=== PATIENT | female | born 1965 | race American Indian/Alaskan Native ===

== ENCOUNTER 2016-09-02 23:52 | Emergency (ER) | payer BC ==
[2016-09-03] MEDS ORDERED: TYLENOL PO ONE (01:13)
[2016-09-03] MEDS ORDERED: NORCO 5/325 ONE (01:16)
[2016-09-03] MEDS ORDERED: NORCO 5/325 PO ONE (01:20)
[2016-09-03] MEDS ORDERED: SUBLIMAZE IV ONE (01:44)
[2016-09-03] MEDS ORDERED: ZOFRAN IV ONE (01:44)
--- NOTE | 2016-09-03 01:53 | XRay Report ---
FINAL REPORT PROCEDURE: XR SHOULDER 2 RT TECHNIQUE: Right shoulder radiographs including AP views in internal and external rotation and abduction. CPT 48116 HISTORY: shoulder pain, dislocation COMPARISON: No prior studies are available for comparison. FINDINGS: Fracture (s) and/or Dislocation(s): There is an anterior dislocation of the right glenohumeral joint. There is a comminuted fracture of the glenoid process.. Joint space(s): There is no significant arthrosis.. Soft tissues: Normal . Bone mineralization: Normal . Foreign bodies: None . IMPRESSION: There is an anterior dislocation of the right glenohumeral joint. There is a comminuted fracture of the glenoid process..
[2016-09-03] MEDS ORDERED: NACL 0.9% 1000 ML 1,000 ML ONE (02:05)
--- NOTE | 2016-09-03 02:06 | Emergency Department Report ---
Upper Extremity - HPI Chief Complaint: Extremity Injury, Upper Stated Complaint: R ARM PAIN/POSS DISLOCATION Time Seen by Provider: 09/03/16 02:00 Upper Extremity: Right Shoulder Occurred When: Today Mechanism: Other (tripped on the curb and impacted a glass wall with significant force.) Severity: severe Symptoms: Yes Pain with Movement, Yes Deformity, Yes Limited Range of Movement, No Numbness, No Weakness, No Swelling, No Bruising/Ecchymosis, No Laceration or Abrasion Other History: Last meal at 6 PM ED Review of Systems ROS: Stated complaint: R ARM PAIN/POSS DISLOCATION Other details as noted in HPI Comment: All other systems reviewed and negative Constitutional: denies: chills, fever Eyes: denies: eye pain, eye discharge, vision change ENT: denies: ear pain, throat pain Respiratory: denies: cough, shortness of breath, wheezing Cardiovascular: denies: chest pain, palpitations Endocrine: no symptoms reported Gastrointestinal: denies: abdominal pain, nausea, diarrhea Genitourinary: denies: urgency, dysuria, discharge Musculoskeletal: denies: back pain, joint swelling, arthralgia Skin: denies: rash, lesions Neurological: denies: headache, weakness, paresthesias Psychiatric: denies: anxiety, depression Hematological/Lymphatic: denies: easy bleeding, easy bruising ED Past Medical Hx - Past Medical History Previous Medical History?: No - Surgical History Past Surgical History?: No - Social History Smoking Status: Never Smoker Substance Use Type: None - Medications Home Medications: Home Medications Medication Instructions Recorded Confirmed Last Taken Type HYDROcodone/APAP 5-325 [[place] 1 each PO Q6HR PRN #20 tablet 09/03/16 Unknown Rx 5/325] Ibuprofen [Motrin 400 MG tab] 400 mg PO Q8H PRN #20 tablet 09/03/16 Unknown Rx Upper Extremity Exam - Exam General: Vital signs noted. No distress. Alert and acting appropriately. Head and Torso: No HEENT Abnormality, No Neck Tenderness, No Chest/Lungs Abnormality, No Abdominal Tenderness, No Back Tenderness Shoulder Exam: Yes Shoulder Tenderness, Yes Shoulder Deformity, No Clavicle Tenderness, No Normal Range of Motion in Shoulder, No AC Joint Tenderness Arm Exam: No Arm/Humerus Tenderness, No Arm Deformity Elbow: No Elbow Tenderness, No Normal Range of Motion in Elbow, No Elbow Deformity Forearm: No Forearm Tenderness, No Forearm Deformity, No Pain with Pronation, No Pain with Supination Wrist: No Wrist Tenderness, No Normal ROM in Wrist ED Course Vital Signs 09/03/16 09/03/16 09/03/16 01:03 01:38 01:41 Temperature 97.8 F Pulse Rate 93 H 98 H 95 H Respiratory 18 20 29 H Rate Blood Pressure 160/101 161/82 Blood Pressure 160/101 [Left] O2 Sat by Pulse 98 98 96 Oximetry 09/03/16 09/03/16 01:49 01:51 Temperature Pulse Rate 90 Respiratory 20 19 Rate Blood Pressure 131/65 Blood Pressure [Left] O2 Sat by Pulse 93 Oximetry - Reevaluation(s) Reevaluation #1: 09/03/16 06:16 Decision was made to use procedural sedation to reduce the shoulder. Patient did tolerate this quite well. Repeat film does demonstrate the humeral head approximating appropriately with the glenoid. It still does seem little bit low in relation to the omentum however. I'm suspicious this may be due to this chronic problem as she has had shoulder dislocation previously as well. I did indicate to her that it would behoove her to follow up with orthopedics for further evaluation. Subjectively she reports resolution of her pain after the procedure. I do not see any fracture after repeat x-rays performed either. Intact neurovascularly. - Moderate Sedation Indications: fracture/dislocation redu ASA Class: I Mallampati Airway Score: 2 Time of Last PO Intake: 18:00 Preparation: construction foreman applied, pulse oximeter, capnometry used, supplemental O2 applied, reversal agents at bedside, suction/airway equipment at bedside, IV secured Fentanyl: IV IV Propofol Dose (mgs): 160 Complications: none Patient Tolerated Procedure: well - Orthopedic Joint Reduction Joint #1 Consent Obtained: written consent Time Out Performed: Yes Side: right Joint Reduction Location: shoulder Analgesia: moderate sedation Shoulder Technique Used (if applicable): traction/counter-traction Technique Used: traction/counter-traction Post-Reduction Neuro Exam: intact Post-Reduction Vascular Exam: intact Post Reduction X-Ray Obtained: Yes Post Reduction X-Ray Results: reduced Splint Applied: Yes (shoulder immobilizer) Patient Tolerated Procedure: well ED Medical Decision Making - Radiology Data interpreted by me: Anterior shoulder dislocation. No Hill-Sachs or other fracture deformities noted. Critical care attestation.: If time is entered above; I have spent that time in minutes in the direct care of this critically ill patient, excluding procedure time. ED Disposition Clinical Impression: Shoulder dislocation Qualifiers: Encounter type: initial encounter Laterality: right Qualified Code(s): S43.004A - Unspecified dislocation of right shoulder joint, initial encounter Disposition: DISCHARGED TO HOME OR SELFCARE Is pt being admited?: No Does the pt Need Aspirin: No Condition: Stable Instructions: Shoulder Dislocation (ED) Additional Instructions: Wear sling when awake. No putting arm overhead. Ice to shoulder for a couple of days Prescriptions: HYDROcodone/APAP 5-325 [[place] 5/325] 1 each PO Q6HR PRN #20 tablet PRN Reason: Pain Ibuprofen [Motrin 400 MG tab] 400 mg PO Q8H PRN #20 tablet PRN Reason: Pain Referrals: FABRICE GRAMAJO MD [Staff Physician] - 3-5 Days Forms: Work/School Release Form(ED)
[2016-09-03] MEDS ORDERED: DIPRIVAN 10 MG/ML IV ONE (02:07)
[2016-09-03] MEDS ORDERED: PERCOCET 5/325 PO ONE (02:54)
[2016-09-03 03:09] VITALS: BP 115/60
[2016-09-03] MEDS ORDERED: NACL 0.9% 1000 ML 1,000 ML IV ONE (06:12)
--- NOTE | 2016-09-03 07:25 | XRay Report ---
AP right shoulder: Postreduction evaluation. The shoulder joint is currently in good alignment. No fracture deformity identified.
[2016-09-07] MEDS ORDERED: SUBLIMAZE IV ONE (06:30)
== END 2016-09-03 03:30 | disposition home or self-care (01) ==
LOC: ED 23:52
DX: S43.004A Unspecified dislocation of right shoulder joint, initial encounter (principal); X58.XXXA Exposure to other specified factors, initial encounter; Y93.89 Activity, other specified; Y99.8 Other external cause status; Y92.89 Other specified places as the place of occurrence of the external cause
CPT/HCPCS: 23650; 73020; 73030; 96361; 96374; 96375; 99283; J2405; J2704; J3010; J7030

== ENCOUNTER 2016-09-07 06:16 | Emergency (ER) | payer BC ==
[2016-09-07 06:37] VITALS: BP 159/107
[2016-09-07] MEDS ORDERED: SUBLIMAZE IV ONE (06:41)
--- NOTE | 2016-09-07 06:57 | XRay Report ---
FINAL REPORT PROCEDURE: XR SHOULDER 2 RT TECHNIQUE: Right shoulder radiographs including AP views in internal and external rotation and abduction. CPT 45036 HISTORY: rt shoulder pn, send for report COMPARISON: 09/02/2016 FINDINGS: Fracture (s) and/or Dislocation(s): None . Joint space(s): Mild spur formation off the acromioclavicular joint. Soft tissues: Normal . Bone mineralization: Normal . Foreign bodies: None . IMPRESSION: No evidence of an acute fracture or dislocation.
--- NOTE | 2016-09-07 07:41 | Emergency Department Report ---
Upper Extremity - HPI Chief Complaint: Extremity Injury, Upper Stated Complaint: RT SHOULDER PAIN Time Seen by Provider: 09/07/16 07:36 Upper Extremity: Right Shoulder (pain is radiating down from shoulder to arm.) Occurred When: 1 Day Mechanism: Other (skin had dislocated shoulder that was reduced on 09/06/2016.) Severity: moderate (7 out of 10 right shoulder) Symptoms: Yes Pain with Movement (right shoulder), Yes Limited Range of Movement (right shoulder), No Deformity, No Numbness, No Weakness, No Swelling, No Bruising/Ecchymosis, No Laceration or Abrasion Other History: Patient was here on 09/06/2016.She had dislocation of right shoulder dislocation that was reduced under her conscious sedation yesterday. Back today thinking that she has dislocated her shoulder again. She is complaining the pain 7 out of 10 to her right shoulder joint that is radiating down her arm and forearm. Describes pain as aching. She says she took hydrocodone but it did not help her. She was given prescription for hydrocodone and ibuprofen. ED Review of Systems ROS: Stated complaint: RT SHOULDER PAIN Other details as noted in HPI Comment: All other systems reviewed and negative Constitutional: denies: chills, fever Respiratory: no symptoms reported Cardiovascular: denies: chest pain, palpitations, edema, syncope Gastrointestinal: denies: abdominal pain, nausea, vomiting Musculoskeletal: arthralgia. denies: back pain, joint swelling, myalgia Skin: denies: rash Neurological: denies: headache, weakness, numbness, paresthesias, confusion, abnormal gait, vertigo ED Past Medical Hx - Past Medical History Previous Medical History?: Yes Additional medical history: Dislocated Shoulder x 2 - Surgical History Past Surgical History?: No - Family History Family history: no significant - Social History Smoking Status: Never Smoker Substance Use Type: None - Medications Home Medications: Home Medications Medication Instructions Recorded Confirmed Last Taken Type HYDROcodone/APAP 5-325 [[place] 1 each PO Q6HR PRN #20 tablet 09/03/16 Unknown Rx 5/325] Ibuprofen [Motrin 400 MG tab] 400 mg PO Q8H PRN #20 tablet 09/03/16 Unknown Rx Upper Extremity Exam - Exam General: Vital signs noted. No distress. Alert and acting appropriately. This is a 51-year-old female well-nourished well-developed in no acute distress. Head and Torso: No HEENT Abnormality (normal exam), No Neck Tenderness (no C- spine tenderness, supple and normal range of motion), No Chest/Lungs Abnormality (clear to auscultate bilaterally no rhonchi wheezes or rales.), No Abdominal Tenderness (soft, nontender to palpate , normal bowel sounds), No Back Tenderness ( no vertebral or paraspinal tenderness.) Shoulder Exam: Yes Shoulder Tenderness ([place] joint), No Clavicle Tenderness, No Normal Range of Motion in Shoulder (patient with limited range of motion to right shoulder because she said it is very painful. No deformity noted. No swelling.), No Shoulder Deformity, No AC Joint Tenderness Arm Exam: No Arm/Humerus Tenderness (normal exam), No Arm Deformity Elbow: Yes Normal Range of Motion in Elbow, No Elbow Tenderness, No Elbow Deformity Forearm: No Forearm Tenderness, No Forearm Deformity, No Pain with Pronation, No Pain with Supination Wrist: Yes Normal ROM in Wrist, No Wrist Tenderness, No Wrist Deformity, No Snuffbox Tenderness, No Pain with Axial Thumb Compression Hand: Yes Normal ROM in Digit(s), No Hand Tenderness, No Hand Deformity, No Digit Tenderness, No Digit(s) Deformity, No Tendon Dysfunction (no clubbing, cyanosis or edema noted to extremities. +2 pulses bilaterally. No neurovascular compromise. Normal sensation.) CMS Exam: Yes Normal Distal Pulses, Yes Normal Capillary Refill, Yes Normal Distal Sensation, No Broken Skin ED Course Vital Signs 09/07/16 06:25 Temperature 97.5 F L Pulse Rate 110 H Respiratory 18 Rate Blood Pressure 159/107 [Right] O2 Sat by Pulse 97 Oximetry - Reevaluation(s) Reevaluation #1: 09/07/16 09:12 Patient given Valium 10 mg by mouth and Percocet 5/325 mg 2 tablets in emergency room to manage pain. - Orthopedic Splinting/Casting Injury #1 Side: right Upper Extremity Injury Location: shoulder Upper Extremity Immobilizer: sling/shoulder immobilize ED Medical Decision Making - Radiology Data Radiology results: report reviewed X-ray of right shoulder shows no dislocation or fracture. - Medical Decision Making ED course: Procedure note for detail and shoulder splinting. The patient and her family that she has no fracture or dislocation to her right shoulder. I discussed with her that she might have some ligamentous to rotator cuff injury and she'll need to follow-up with orthopedic doctor for MRI. Patient was given Valium 10 mg by mouth and 2 Percocet 5/325 mg in emergency room. Patient was here on 09/06/2016 and she had dislocated right shoulder which was reduced and pre-and post x-ray verified. third x-ray showed that shoulder is in place and inferior are no acute findings.. I discussed the patient that she cannot take shoulder sling off she is to keep it on and call orthopedics schedule appointment in the morning. Discharged home with her family to continue her pain medication that was ordered for her under initial visit. Critical care attestation.: If time is entered above; I have spent that time in minutes in the direct care of this critically ill patient, excluding procedure time. ED Disposition Clinical Impression: Arthralgia of right shoulder region, Radiculopathy affecting upper extremity Disposition: DISCHARGED TO HOME OR SELFCARE Is pt being admited?: No Does the pt Need Aspirin: No Condition: Stable Instructions: Arthralgia (ED), RICE Therapy (ED) Additional Instructions: Please follow up with orthopedic doctor as discussed. do not take [place] while driving or operating heavy machinery with this medication causes drowsiness Referrals: PRIMARY CARE, [Primary Care Provider] - 2-3 Days EBONI SANDS MD [Staff Physician] - 24 Hours Forms: Accompanied Note, Work/School Release Form(ED)
[2016-09-07] MEDS ORDERED: PERCOCET 5/325 PO ONE (07:42)
[2016-09-07] MEDS ORDERED: VALIUM PO ONE (07:42)
== END 2016-09-07 09:26 | disposition home or self-care (01) ==
LOC: ED 06:16
DX: M25.511 Pain in right shoulder (principal); M54.10 Radiculopathy, site unspecified